=== PATIENT | male | born 1990 | race Caucasian/White ===

== ENCOUNTER 2018-01-11 18:10 | Emergency (ER) | payer BC, MEDICAID ==
[~2018-01-11] VITALS: Ht 182.9 cm; Wt 83.9 kg
[2018-01-11 18:10] VITALS: BP_SYST 135
== END 2018-01-11 20:38 | disposition home or self-care (01) ==
LOC: SED 18:10
DX: S02.40DA Maxillary fracture, left side, initial encounter for closed fracture (principal); S02.642A Fracture of ramus of left mandible, initial encounter for closed fracture; S02.40FA Zygomatic fracture, left side, initial encounter for closed fracture; S02.82XA Fracture of other specified skull and facial bones, left side, initial encounter for closed fracture; W51.XXXA Accidental striking against or bumped into by another person, initial encounter; Y93.71 Activity, boxing; Y92.89 Other specified places as the place of occurrence of the external cause; Y99.8 Other external cause status
CPT/HCPCS: 70486-TC; 99284

== ENCOUNTER 2020-01-10 23:26 | Emergency (ER) | payer SELFPAY ==
[~2020-01-10] VITALS: Ht 172.7 cm; Wt 90.7 kg
[2020-01-10 23:30] VITALS: BP_SYST 144
[2020-01-11 00:43] VITALS: BP_SYST 133
[2020-01-11] MEDS ORDERED: IPRATROPIUM/ALBUTEROL SULFATE 3 ML AMPUL.NEB (DUONEB) ONE (06:40)
== END 2020-01-10 23:55 ==
LOC: SED 23:26
DX: F10.129 Alcohol abuse with intoxication, unspecified (principal)
CPT/HCPCS: 99283